=== PATIENT | female | born 1960 | race Caucasian/White ===

== ENCOUNTER 2017-08-09 04:11 | Emergency (ER) | payer OTHER ==
[2017-08-09 04:17] VITALS: BP 179/91; PULSE 65; RESP 16; TEMP 98.4
[2017-08-09] MEDS ORDERED: traMADol 50 MG STARTER PACK 3 TAB BTL PO STA (04:33)
--- NOTE | 2017-08-09 04:36 | ED ---
General Adult HPI - General Chief complaint: Dental/Oral Stated complaint: DENTAL PAIN Time Seen by Provider: 08/09/17 04:27 Source: patient, RN notes reviewed Mode of arrival: ambulatory Limitations: no limitations - History of Present Illness Initial comments: Patient is a pleasant 57-year-old female presenting to the emergency Department with dental pain. Onset was a day or 2 ago. Patient has discomfort left upper tooth. No history of chronic problems. Patient has not yet seen a dentist for this. Patient has noticed some swelling as well as discomfort. No dyspnea. - Related Data Previous Rx's Medication Instructions Recorded Erythromycin [Jairo-Tab] 333 mg PO TID #30 tablet. 08/09/17 Allergies Allergy/AdvReac Type Severity Reaction Status Date / Time codeine Allergy Nausea & Verified 08/09/17 04:18 Vomiting Penicillins Allergy Swelling Verified 08/09/17 04:18 Review of Systems ROS Statement: Those systems with pertinent positive or pertinent negative responses have been documented in the HPI. ROS Other: All systems not noted in ROS Statement are negative. Constitutional: Denies: fever Eyes: Denies: eye pain ENT: Denies: ear pain Respiratory: Denies: cough Cardiovascular: Denies: chest pain Endocrine: Denies: fatigue Gastrointestinal: Denies: abdominal pain Genitourinary: Denies: dysuria Musculoskeletal: Denies: back pain Skin: Denies: rash Neurological: Denies: weakness Past Medical History Past Medical History: No Reported History History of Any Multi-Drug Resistant Organisms: None Reported Past Surgical History: Appendectomy, Section, Cholecystectomy Past Psychological History: No Psychological Hx Reported Smoking Status: Current some day smoker Past Alcohol Use History: None Reported, Occasional Past Drug Use History: None Reported General Exam Limitations: no limitations General appearance: alert, in no apparent distress Head exam: Present: atraumatic Eye exam: Present: normal appearance, PERRL ENT exam: Present: normal oropharynx, other (Left upper lateral incisor with decay and minimal surrounding swelling. No drainable abscess visualized. There is mild swelling externally in the left maxillary region) Neck exam: Present: normal inspection Respiratory exam: Present: normal lung sounds bilaterally Cardiovascular Exam: Present: regular rate, normal rhythm GI/Abdominal exam: Present: soft. Absent: tenderness Neurological exam: Present: alert Psychiatric exam: Present: normal affect, normal mood Skin exam: Present: normal color Course Vital Signs 08/09/17 04:13 Temperature 98.4 F Pulse Rate 65 Respiratory 16 Rate Blood Pressure 179/91 O2 Sat by Pulse 98 Oximetry Disposition Clinical Impression: Toothache Disposition: HOME SELF-CARE Condition: Stable Instructions: Toothache (ED), Dental Caries (ED) Additional Instructions: Please follow-up with dentist tomorrow. Return for fever, increased swelling, increased pain, difficulty breathing, not tolerating fluids, worsening symptoms or other concerns. Prescriptions: Erythromycin [Jairo-Tab] 333 mg PO TID #30 tablet.dr Referrals: Kecia Perera MD [STAFF PHYSICIAN] - 1-2 days Time of Disposition: 04:36
== END 2017-08-09 04:44 | disposition home or self-care (01) ==
LOC: EC 04:11
DX: K02.9 Dental caries, unspecified (principal); F17.200 Nicotine dependence, unspecified, uncomplicated; Z88.0 Allergy status to penicillin; Z88.5 Allergy status to narcotic agent
CPT/HCPCS: 99282